=== PATIENT | female | born 1960 | race Caucasian/White ===

== ENCOUNTER 2017-11-02 20:24 | Emergency (ER) | payer BC, OTHER ==
[~2017-11-02 20:24] MED LIST: CHANTIX; CIT20 PO; ERG400 PO; ESTR-25 PO; HYDR1TAB PO; MULT-1085 PO; VARE1TAB18 PO; WAR25 PO; WAR5 PO; [UNRECOGNIZED DRUG - OTHER]
[2017-11-02] MEDS ORDERED: VENL75TA12 PO (20:39)
[2017-11-02] MEDS ORDERED: WARF5TAB23 PO (20:39)
[2017-11-02] MEDS ORDERED: GABA-549 PO (20:39)
--- NOTE | 2017-11-02 20:41 | ER Report ---
History and Physical Time Seen By MD: 20:41 Hx. of Stated Complaint: PATIENT FELL TODAY AROUND 1830 ONTO HER LEFT WRIST; STATES 8/10 PAIN HPI/ROS CHIEF COMPLAINT: Left wrist pain HISTORY OF PRESENT ILLNESS: 57-year-old female patient presents to emergency room with complaint of left wrist pain. Patient states that she tripped and fell proximally 6:30 this evening. She states that she fell backwards and put her left hand out to catch her. She states since then she's been having significant amounts of pain. She called friend to bring her into the emergency room. The patient does live in [place], [place]. Patient denies having any numbness or tingling to the hand. Patient states she has numbness to the right foot which is what often leads her to falling. She denies having any head injury , neck pain. She denies any nausea, vomiting or diarrhea. She states she did ice the wrist but denies taking any medication for this. REVIEW OF SYSTEMS: Respiratory: No cough, no dyspnea. Cardiovascular: No chest pain, no palpitations. Gastrointestinal: No vomiting, no abdominal pain. Musculoskeletal: As noted above. 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 Reported Medications Gabapentin (GABAPENTIN) 300 Mg Capsule, 100 MG PO TID, CAPSULE 11/02/17 Venlafaxine Hcl (VENLAFAXINE HCL) 75 Mg Tab, 75 MG PO ONCE, TAB 11/02/17 Warfarin Sodium (WARFARIN SODIUM) 5 Mg Tablet, 6 MG PO 4XWK, TAB 11/02/17 Warfarin Sod (Coumadin (Or Equiv)) 5 Mg Tab, 5 MG PO 10/27/11 Cholecalciferol (Vitamin D-3) 400 Unit Tablet, 400 UNIT PO DAILY, 0 Refills 10/11/11 Discontinued Reported Medications Hydrocodone Bit/Acetaminophen (Hydrocodone-Apap 5-325 Tab) 1 Each Tablet, 1 EACH PO Q4H Y, #20 10/27/11 Warfarin Sod (Coumadin (Or Equiv)) 2.5 Mg Tab, 2.5 MG PO 10/27/11 Varenicline Tartrate (Chantix) 1 Dose-Pack Tab.ds.pk, 1 DOSE PO, 0 Refills USE DIRECTED. 10/12/11 Multivits W-Ca,Fe,Other Min (Women's Daily Multivitamin) 1 Each Tablet, 1 EACH PO DAILY, 0 Refills 10/11/11 Citalopram Hydrobromide (Celexa) 20 Mg Tab, 40 MG PO QDAY, 0 Refills 10/11/11 Past Medical/Surgical History Patient has a past medical history of migraines, DVT, PE, frequent UTI, blood clots, alcohol use, depression. Patient has surgical history of back surgery. Patient has a family medical history of cancer, CAD. Reviewed Nurses Notes: Yes Hx Smoking: Yes Hx Substance Use Disorder: No Hx Alcohol Use: Yes Constitutional Vital Sign - Last 24 Hours 11/02/17 11/02/17 11/02/17 11/02/17 20:29 20:30 21:05 21:24 Temp 99.5 Pulse 87 83 Resp 18 B/P (MAP) 163/95 163/95 (117) 148/98 (115) Pulse Ox 96 94 O2 Delivery Room Air 11/02/17 11/02/17 21:30 21:54 Pulse 82 B/P (MAP) 164/88 (113) Pulse Ox 93 Physical Exam General Appearance: The patient is alert, has no immediate need for airway protection and no current signs of toxicity. ENT: Tympanic membranes are pearly-powell, auditory canals are patent, mucous membranes are moist. Respiratory: Chest is non tender, lungs are clear to auscultation. Cardiac: regular rate and rhythm Gastrointestinal: Abdomen is soft and non tender, no masses, bowel sounds normal. Musculoskeletal: Neck: Neck is supple and non tender. Extremities have full range of motion and are non tender. Patient does have swelling to the left wrist, there is some deformity. Skin: No rashes or lesions. DIFFERENTIAL DIAGNOSIS: After history and physical exam differential diagnosis was considered for wrist sprain, wrist strain, fracture. Medical Decision Making EKG/Imaging Imaging TECHNIQUE: FOREARM LEFT, WRIST LEFT MIN 3 VIEW COMPARISON: None FINDINGS: Forearm: There is no fracture of the proximal radius or ulna. Left wrist: A comminuted fracture of the distal radius extends intra- articularly. There is mild impaction. Severe first CMC arthrosis. Diffusely decreased bone density. IMPRESSION: Comminuted, intra-articular, impacted fracture of the distal radius. Report Dictated By: Eve Kirkpatrick MD at 11/02/2017 9:29 PM Report E-Signed By: Eve Kirkpatrick MD at 11/02/2017 9:31 PM TECHNIQUE: FOREARM LEFT, WRIST LEFT MIN 3 VIEW COMPARISON: None FINDINGS: Forearm: There is no fracture of the proximal radius or ulna. Left wrist: A comminuted fracture of the distal radius extends intra- articularly. There is mild impaction. Severe first CMC arthrosis. Diffusely decreased bone density. IMPRESSION: Comminuted, intra-articular, impacted fracture of the distal radius. Report Dictated By: Eve Kirkpatrick MD at 11/02/2017 9:29 PM Report E-Signed By: Eve Kirkpatrick MD at 11/02/2017 9:31 PM ED Course/Re-evaluation ED Course Patient was medicated exam room, history and physical were obtained. Differential diagnoses were considered. On examination patient does have swelling and bruising to the left wrist. She has pain with movement. Patient has good sensation to radial, ulnar and median nerves. X-rays done of the left wrist which shows a comminuted fracture of the distal left radius. It is intra- articular. I discussed findings with the patient. Patient did receive a dose of Percocet here in the emergency room. Patient was placed in a splint as described below. Patient tolerated procedure well. We will go ahead and discharge patient home at this time. 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 I discussed this with the patient who verbalized understanding and agreement. Procedure: Splint placement. A sugar tong splint was applied. After application of the splint I returned and re-examined the patient. The splint was adequately immobilizing the joint and distal to the splint the patient's circulation and sensation was intact. Decision to Disposition Date: Nov 02, 2017 Decision to Disposition Time: 21:52 Depart Departure Latest Vital Signs Vital Signs Date Time Temp Pulse Resp B/P (MAP) Pulse Ox O2 Delivery O2 Flow Rate FiO2 11/02/17 21:54 82 93 11/02/17 21:30 164/88 (113) 11/02/17 20:29 99.5 18 Room Air Impression: Primary Impression: Radial fracture Condition: Improved Disposition: HOME OR SELF-CARE Referrals: NAZIA PEÑA (PCP) ISELA CURTIS MD, MARK MD New Scripts Oxycodone Hcl/Acetaminophen (PERCOCET 5-325 MG TABLET) 1 Each Tablet 1 EACH PO Q4-6H Y for PAIN, #20 TAB Prov: NUPUR ACUNA 11/02/17 Patient Instructions: Wrist Fracture in Adults (ED) Additional Instructions: Limit activity by pain. Ice the wrist through the splint; 2-3 times a day for 20-30 minutes. If the splint is feeling too tight you may loosen the maria guadalupe wrap and rewrap it. Follow up with [facility], call tomorrow to make an appointment. Keep the splint dry, wrap it with a bag and tape to keep the water out. Return to the ER with uncontrollable pain or numbness to the hand. You may take Ibuprofen as needed for pain in addition to the pain medication. Don't take any additional Tylenol while on the pain medication. Problem Qualifiers Primary Impression: Radial fracture Encounter type: initial encounter Radius location: distal Fracture type: closed Fracture morphology: other intra-articular Laterality: left Qualified Codes: S52.572A - Other intraarticular fracture of lower end of left radius, initial encounter for closed fracture NUPUR ACUNA Nov 02, 2017 20:41
[2017-11-02 21:30] VITALS: BP 164/88
--- NOTE | 2017-11-02 21:35 | RADIOLOGY IMAGING REPORT ---
FACILITY: [facility] [place] PATIENT NAME: Cathy Castaneda : 1960 MR: [id number] V: [id number] EXAM DATE: ORDERING PHYSICIAN: NUPUR ACUNA TECHNOLOGIST: Location: [facility] Patient: Cathy Castaneda : 1960 Visit/Account:[id number] Date of Sevice: 11/02/2017 INDICATION: fall with pain. DATE: 11/02/2017 9:29 PM. TECHNIQUE: FOREARM LEFT, WRIST LEFT MIN 3 VIEW COMPARISON: None FINDINGS: Forearm: There is no fracture of the proximal radius or ulna. Left wrist: A comminuted fracture of the distal radius extends intra-articularly. There is mild impac tion. Severe first CMC arthrosis. Diffusely decreased bone density. IMPRESSION: Comminuted, intra-articular, impacted fracture of the distal radius. Report Dictated By: Eve Kirkpatrick MD at 11/02/2017 9:29 PM Report E-Signed By: Eve Kirkpatrick MD at 11/02/2017 9:31 PM WSN:[id number]
--- NOTE | 2017-11-02 21:35 | RADIOLOGY IMAGING REPORT ---
FACILITY: [facility] PATIENT NAME: Cathy Castaneda : 1960 MR: [id number] V: [id number] EXAM DATE: ORDERING PHYSICIAN: NUPUR ACUNA TECHNOLOGIST: Location: [facility] [place] Patient: Cathy Castaneda : 1960 Visit/Account:[id number] Date of Sevice: 11/02/2017 INDICATION: fall with pain. DATE: 11/02/2017 9:29 PM. TECHNIQUE: FOREARM LEFT, WRIST LEFT MIN 3 VIEW COMPARISON: None FINDINGS: Forearm: There is no fracture of the proximal radius or ulna. Left wrist: A comminuted fracture of the distal radius extends intra-articularly. There is mild impac tion. Severe first CMC arthrosis. Diffusely decreased bone density. IMPRESSION: Comminuted, intra-articular, impacted fracture of the distal radius. Report Dictated By: Eve Kirkpatrick MD at 11/02/2017 9:29 PM Report E-Signed By: Eve Kirkpatrick MD at 11/02/2017 9:31 PM WSN:[id number]
[2017-11-02] MEDS ORDERED: OXYC-865 PO (21:50)
[2017-11-02] MEDS ORDERED: oxyCODONE/ACETAMIN 5/325MG TH 2 TAB/BOTTLE PO ONE ×2 (21:55→22:05)
== END 2017-11-02 22:09 | disposition home or self-care (01) ==
LOC: ER 20:44
DX: S52.572A Other intraarticular fracture of lower end of left radius, initial encounter for closed fracture (principal)
CPT/HCPCS: 29105; 73090; 73110; 99283; A4565

== ENCOUNTER → 2017-11-03 | Outpatient (CLI) | payer BC ==
[~2017-11-03] MED LIST changes: +GABA-549 PO; +OXYC-865 PO; +VENL75TA12 PO; +WARF5TAB23 PO
--- NOTE | 2017-11-03 16:17 | RADIOLOGY IMAGING REPORT ---
FACILITY: [facility] PATIENT NAME: Cathy Castaneda : 1960 MR: [id number] V: [id number] EXAM DATE: ORDERING PHYSICIAN: YESSICA BROWN TECHNOLOGIST: Location: [facility] Patient: Cathy Castaneda : 1960 Visit/Account:[id number] Date of Sevice: 11/03/2017 WRIST LEFT W/O CONTRAST HISTORY: Wrist pain. Fracture. ADDITIONAL HISTORY: None. TECHNIQUE: CT images were obtained through the left wrist without intravenous contrast. 2D coronal a nd sagittal images obtained from the initial data. One of the following dose optimization techniques was utilized in the performance of this exam: automated exposure control; adjustment of the mA and/or kv according to patient size; or use of iterative reconstruction technique. Specific details can be referenced in the facility's radiology CT exam operational policy. CONTRAST: None COMPARISON: X-ray 11/02/2017 FINDINGS: Wrist: Comminuted, nondisplaced intra-articular fracture of the distal radius. Mild impaction of the dorsal surface. Distal ulna is intact. The scaphoid bone is intact. The carpal rows are well aligned. Scapholunate and lunotriquetral intervals are normal. Small joint effusion. No loose body. Moderate degenerative changes at the triscaphe joint and first CMC joint. Soft tissues: Normal Other findings: None significant IMPRESSION: 1. Comminuted, nondisplaced intra-articular fracture the distal radius. Mild dorsal impaction. Report Dictated By: Kyle De La Cruz MD at 11/03/2017 4:09 PM Report E-Signed By: Kyle De La Cruz MD at 11/03/2017 4:12 PM WSN:[id number]
== END ==
LOC: CT 14:48
PROVIDERS: ATTEND Orthopaedic Surgery
DX: S52.592A Other fractures of lower end of left radius, initial encounter for closed fracture (principal); M25.432 Effusion, left wrist

== ENCOUNTER → 2017-12-04 | Outpatient (CLI) | payer BC ==
--- NOTE | 2017-12-04 12:09 | RADIOLOGY IMAGING REPORT ---
FACILITY: [facility] PATIENT NAME: Cathy Castaneda : 1960 MR: [id number] V: [id number] EXAM DATE: ORDERING PHYSICIAN: IRENE BOYD TECHNOLOGIST: Location: [facility] [place] Patient: Cathy Castaneda : 1960 Visit/Account:[id number] Date of Sevice: 12/04/2017 INDICATION: . Left arm pain after surgery 3 weeks ago. Evaluate for DVT. DATE: 12/04/2017 12:03 PM. TECHNIQUE: VENOUS DOPP UPPER LEFT EXTREMI COMPARISON: None FINDINGS: The left internal jugular vein, subclavian vein, axillary vein, basilic vein, brachial vein s, and cephalic vein are patent. IMPRESSION: Negative for left upper extremity DVT. Findings of normal telephoned directly to the ordering provider by the radiology [facility]. Report Dictated By: Eve Kirkpatrick MD at 12/04/2017 12:03 PM Report E-Signed By: Eve Kirkpatrick MD at 12/04/2017 12:04 PM WSN:[id number]
== END ==
LOC: US 10:32
PROVIDERS: ATTEND Family Medicine
DX: I26.99 Other pulmonary embolism without acute cor pulmonale (principal); M79.622 Pain in left upper arm; Z79.01 Long term (current) use of anticoagulants